=== PATIENT | female | born 1950 | race Caucasian/White ===

== ENCOUNTER → 2017-09-10 | Outpatient (CLI) | payer OTHER ==
[~2017-09-10] MED LIST: ASPI81TA28 PO; ATOR-24 PO; CHOLTAB3 PO; ERGO1CAP35 PO; FURO-85 PO; IBUP-1428 PO; ISOS30TA13 PO; VSK5 PO
--- NOTE | 2017-09-10 16:50 | DIAGNOSTIC IMAGING REPORT ---
CHEST 2 VIEWS ROUTINE CLINICAL HISTORY: R06.02 dyspnea COMPARISON STUDY: 08/24/2011 FINDINGS: Poorly defined parenchymal infiltrate left base. Diaphragms are smooth. Lungs otherwise appear clear. Mild stable cardia megaly. IMPRESSION: Poorly defined parenchymal infiltrate left base. The above report was generated using voice recognition software. It may contain grammatical, syntax or spelling errors. Electronically signed by: Burke Delaney M.D. 09/10/2017 4:48 PM Dictated Date/Time: 09/10/2017 4:48 PM
== END | disposition home or self-care (01) ==
LOC: C.RAD1850 16:36
PROVIDERS: ATTEND Physician Assistant
DX: R06.02 Shortness of breath (principal)